=== PATIENT | female | born 1980 | race Caucasian/White ===

== ENCOUNTER 2019-07-18 17:09 | Outpatient (CLI) | payer OTHER ==
--- NOTE | 2019-07-19 09:36 | Ultrasound Report ---
Reason: ABD PAIN LLQ Procedure Date: 07/18/2019 Accession Number: [id number] / [id number] Procedure: US - Pelvic w/Transvaginal CPT Code: Final Report FULL RESULT: EXAM: PELVIC ULTRASOUND EXAM DATE: 07/18/2019 06:02 PM. CLINICAL HISTORY: Left lower quadrant abdominal pain. COMPARISON: None. TECHNIQUE: Realtime transabdominal pelvic scan performed to identify the uterus and adnexa and as an overview of other pelvic structures, followed by transvaginal scan to provide greater detail of the uterus and adnexa, with static image documentation. FINDINGS: Uterus: 7.4 x 4.4 x 5.7 cm, volume 97 cc. Anteverted position. Normal overall size and echotexture. Masses: None. Endometrium: 11 mm. Normal. Cervix: Unremarkable. Right Ovary: 4.2 x 2.4 x 2.4 cm, volume 12.5 cc. A complex cystic lesion containing nonvascular echogenic internal contents measures 1.3 x 1.8 x 2.3 cm. No evidence for torsion. Left Ovary: 2.7 x 1.4 x 1.6 cm, volume 3.3 cc. Normal echotexture and blood flow. A dominant follicle measures 1.4 cm. Free Fluid: None. Other: None. IMPRESSION: 1. Complex 2.3 cm right ovarian cystic lesion could represent a hemorrhagic cyst or potentially endometrioma. Sonographic follow-up to ensure resolution in 1-2 months suggested. 2. 1.4 cm dominant follicle noted in the left ovary. RADIA
== END 2019-07-18 17:10 | disposition home or self-care (01) ==
LOC: DI 17:09
PROVIDERS: ATTEND Physician Assistant Medical
DX: N83.9 Noninflammatory disorder of ovary, fallopian tube and broad ligament, unspecified (principal)
CPT/HCPCS: 76830; 76856

== ENCOUNTER 2019-12-06 12:43 | Emergency (ER) | payer OTHER ==
[2019-12-06] MEDS ORDERED: METOCLOPRAMIDE 10 MG/2 ML VIAL IVP STA (13:08)
--- NOTE | 2019-12-06 13:11 | ED Physician Documentation ---
PD HPI FOCAL NEURO - Stated complaint Stated Complaint: SALINAS/DIZZY/LT HAND NUMBNESS/LIPS NUMB - Chief complaint Chief Complaint: Neuro - History obtained from History obtained from: Patient - History of Present Illness Timing - onset: Today - Additional information Additional information: 39-year-old woman with history of anxiety. At around 11 AM today she suddenly developed left hand numbness that was debilitating to the point that she could not hold a phone. Subsequently developed some disequilibrium and vertigo followed by bilateral head pulsing. At some point her lips became numb. The left hand numbness is better but not completely gone. The lip numbness continues as does the headache. Review of Systems Ten Systems: 10 systems reviewed and negative Constitutional: denies: Fever, Chills Cardiac: denies: Chest pain / pressure, Palpitations Respiratory: denies: Dyspnea, Cough PD PAST MEDICAL HISTORY - Past Medical History Past Medical History: Yes Psych: Anxiety - Present Medications Home Medications: Ambulatory Orders Medication Instructions Recorded Confirmed SUMAtriptan [Imitrex] 25 mg PO BID PRN #10 tablet 12/06/19 - Allergies Allergies/Adverse Reactions: Allergies Allergy/AdvReac Type Severity Reaction Status Date / Time Sulfa (Sulfonamide Allergy Rash Verified 12/06/19 12:52 Antibiotics) - Living Situation Living Situation: reports: With spouse/s.o. - Social History Does the pt smoke?: No Does the pt have substance abuse?: No PD ED PE NORMAL - Vitals Vital signs reviewed: Yes - General General: Alert and oriented X 3, No acute distress - HEENT HEENT: PERRL, EOMI - Neck Neck: Supple, no meningeal sign, No bony TTP - Cardiac Cardiac: RRR, No murmur - Respiratory Respiratory: No respiratory distress, Clear bilaterally - Abdomen Abdomen: Normal bowel sounds, Soft, Non tender - Back Back: No CVA TTP, No spinal TTP - Derm Derm: Normal color, Warm and dry - Extremities Extremities: No edema, No calf tenderness / cord - Neuro Neuro: Alert and oriented X 3, Other (Very slight nystagmus on rightward gaze only) Eye Opening: Spontaneous Motor: Obeys Commands Verbal: Oriented GCS Score: 15 - Psych Psych: Normal mood, Normal affect NIHSS - Time Time: 13:00 - Level of Consciousness Level of consciousness: (0) Alert, Keenly responsive LOC Questions: (0) Answers both Q's correct LOC Commands: (0) Performs both correctly - Gaze Best Gaze: (0) Normal - Visual Visual: (0) No loss - Facial Palsy Facial Palsy: (0) Normal, symmetrical movement - Motor Arms (both separate) Motor Arm (right): (0) No drift Motor Arm (left): (0) No drift - Motor Legs (both separate) Motor Leg (right): (0) No drift Motor Leg (left): (0) No drift - Limb Ataxia Limb Ataxia: (0) Absent - Sensory Sensory: (0) Normal - Best Language Best Language: (0) No aphasia - Dysarthria Dysarthria: (0) Normal - Extinction and Inattention (formally neg Extinction and inattention: (0) No abnormality - Total Score/Results Total Score/Result: 0 Results - Vitals Vitals: Vital Signs - 24 hr 12/06/19 12/06/19 12/06/19 12:47 13:33 15:00 Temperature 36.6 C Heart Rate 82 69 72 Respiratory 16 15 20 Rate Blood Pressure 143/83 H 145/79 H 136/84 H O2 Saturation 99 100 100 12/06/19 12/06/19 12/06/19 17:00 19:00 19:43 Temperature 36.7 C Heart Rate 70 99 80 Respiratory 18 16 14 Rate Blood Pressure 138/72 H 144/76 H 122/76 O2 Saturation 100 99 100 Oxygen O2 Source Room air - EKG (time done) 1314 Rate: Rate (enter#) (65) Rhythm: NSR [place]: Normal Intervals: Normal CA QRS: Normal Ischemia: Normal ST segments Computer interpretation: Agree with computer - Labs Labs: Laboratory Tests 12/06/19 12/06/19 12/06/19 13:11 13:21 13:21 WBC 5.3 RBC 4.49 Hgb 13.7 Hct 41.3 MCV 92.0 MCH 30.5 MCHC 33.2 RDW 12.6 Plt Count 234 MPV 10.3 Neut # (Auto) 3.2 Lymph # (Auto) 1.7 [place] # (Auto) 0.4 Eos # (Auto) 0.0 Baso # (Auto) 0.0 Absolute Nucleated RBC 0.00 Nucleated RBC % 0.0 Sodium 136 Potassium 3.7 Chloride 99 L Carbon Dioxide 28 Anion Gap 9.0 BUN 14 Creatinine 0.7 Estimated GFR (MDRD) 93 Glucose 91 POC Whole Bld Glucose Calcium 9.5 Total Bilirubin 0.5 AST 23 ALT 12 Alkaline Phosphatase 37 L Troponin I High Sens Total Protein 7.5 Albumin 4.2 Globulin 3.3 Albumin/Globulin Ratio 1.3 Lipase 30 Urine Color LIGHT YELLOW Urine Clarity CLEAR Urine pH 6.5 Ur Specific [place] <=1.005 Urine Protein NEGATIVE Urine Glucose (UA) NEGATIVE Urine Ketones NEGATIVE Urine Occult Blood NEGATIVE Urine Nitrite NEGATIVE Urine Bilirubin NEGATIVE Urine Urobilinogen 0.2 (NORMAL) Ur Leukocyte Esterase NEGATIVE Ur Microscopic Review NOT INDICATED Urine Culture Comments NOT INDICATED Urine HCG, Qual NEGATIVE 12/06/19 12/06/19 13:21 13:24 WBC RBC Hgb Hct MCV MCH MCHC RDW Plt Count MPV Neut # (Auto) Lymph # (Auto) [place] # (Auto) Eos # (Auto) Baso # (Auto) Absolute Nucleated RBC Nucleated RBC % Sodium Potassium Chloride Carbon Dioxide Anion Gap BUN Creatinine Estimated GFR (MDRD) Glucose POC Whole Bld Glucose 88 Calcium Total Bilirubin AST ALT Alkaline Phosphatase Troponin I High Sens 2.8 Total Protein Albumin Globulin Albumin/Globulin Ratio Lipase Urine Color Urine Clarity Urine pH Ur Specific [place] Urine Protein Urine Glucose (UA) Urine Ketones Urine Occult Blood Urine Nitrite Urine Bilirubin Urine Urobilinogen Ur Leukocyte Esterase Ur Microscopic Review Urine Culture Comments Urine HCG, Qual PD MEDICAL DECISION MAKING - ED course ED course: 39-year-old woman presents with strokelike symptoms, differential also includes subarachnoid hemorrhage given the headache, migraine, and anxiety which is considered less likely because of the asymmetric nature of the symptoms. After some delay we were able to get an MRI which was read as totally normal. This rules out stroke, subarachnoid hemorrhage, multiple sclerosis and she was very relieved. Departure - Departure Disposition: 01 Home, Self Care Clinical Impression: Stroke-like symptoms Headache Qualifiers: Headache type: unspecified Headache chronicity pattern: acute headache Intractability: not intractable Qualified Code(s): R51 - Headache Condition: Good Record reviewed to determine appropriate education?: Yes Instructions: ED Headache Migraine Prescriptions: SUMAtriptan [Imitrex] 25 mg PO BID PRN #10 tablet PRN Reason: Headache Comments: As discussed, the negative MRI rules out almost all serious etiologies of your symptoms. That said if you develop new or worsening symptoms please return for reevaluation. Follow-up with your doctor, next available appointment. Discharge Date/Time: 12/06/19 19:43
[2019-12-06 13:38] LABS: BASOPHILS % (AUTO) 0.6 %; EOSINOPHILS % (AUTO) 0.7 %; HGB - HEMOGLOBIN 13.7 g/dL (12.0-16.0); LYMPHOCYTES # (AUTO) 1.7 10^3/uL (1.5-3.5); LYMPHOCYTES % (AUTO) 30.9 %; MEAN CORPUSCULAR HEMOGLOBIN 30.5 pg (27.0-31.0); MEAN CORPUSCULAR HGB CONC 33.2 g/dL (32.0-36.0); MEAN PLATELET VOLUME 10.3 fL (7.9-10.8); MONOCYTES # (AUTO) 0.4 10^3/uL (0.0-1.0); MONOCYTES % (AUTO) 7.1 %; NEUTROPHILS # (AUTO) 3.2 10^3/uL (1.5-6.6); NEUTROPHILS % (AUTO) 60.3 %; PLT - PLATELET COUNT 234 10^3/uL (130-450); RED BLOOD COUNT 4.49 10^6/uL (4.20-5.40); RED CELL DISTRIBUTION WIDTH 12.6 % (12.0-15.0); WHITE BLOOD COUNT 5.3 x10^3/uL (4.8-10.8)
[2019-12-06 13:48] LABS: BILIRUBIN,URINE NEGATIVE (NEGATIVE); GLUCOSE, URINE (UA) NEGATIVE (NEGATIVE); KETONES,URINE (UA) NEGATIVE (NEGATIVE); LEUKOCYTE ESTERASE, URINE NEGATIVE (NEGATIVE); NITRITE,URINE NEGATIVE (NEGATIVE); OCCULT BLOOD,URINE NEGATIVE (NEGATIVE); PH,URINE 6.5 PH (5.0-7.5); PROTEIN,URINE NEGATIVE (NEGATIVE); UROBILINOGEN,URINE 0.2 (NORMAL) E.U./dL (NORMAL)
[2019-12-06 13:51] LABS: CLARITY,URINE CLEAR (CLEAR); HCG UR QUAL NEGATIVE
[2019-12-06 13:57] LABS: ALBUMIN 4.2 g/dL (3.2-5.5); ALBUMIN/GLOBULIN RATIO 1.3 (1.0-2.2); BILIRUBIN,TOTAL 0.5 mg/dL (0.2-1.0); CALCIUM 9.5 mg/dL (8.5-10.3); CREATININE 0.7 mg/dL (0.4-1.0); TOTAL PROTEIN 7.5 g/dL (6.7-8.2)
--- NOTE | 2019-12-06 19:26 | MRI Report ---
PROCEDURE: Brain W/O INDICATIONS: stroke like sx TECHNIQUE: Noncontrast axial T1 spin echo, axial T2 fast spin echo, sagittal and axial FLAIR, coronal T2 fast sp in echo, axial gradient echo, axial diffusion and ADC through the brain. COMPARISON: None. FINDINGS: Image quality: Excellent. CSF Spaces: Basal cisterns are patent. No extra-axial fluid collections. Ventricles are normal in size and shape. Brain: No intracranial masses or hemorrhage. [place]/white matter interface is normal. Brainstem appe ars normal. Diffusion-weighted images demonstrate no acute ischemic insult. No areas of encephalomal acia. No abnormal GRE artifact in the brain parenchyma. No abnormal intracranial signal. Normal intra vascular flow voids are present. Skull and face: Calvarium has normal marrow signal. Orbits appear normal. Sinuses: Sinuses and mastoids are clear. IMPRESSION: 1. No intracranial disease process. 2. No areas of acute or chronic infarction. 3. No intracranial hemorrhage. 4. No abnormal intracranial mass or mass effect. Reviewed by: Alka Mackay MD, PhD on 12/06/2019 7:25 PM PDT Approved by: Alka Mackay MD, PhD on 12/06/2019 7:25 PM PDT Station ID: [id number]
[2019-12-06] MEDS ORDERED: SUMAtriptan 25 MG TABLET PO STA (19:30)
[2019-12-06 19:44] VITALS: BP 122/76
== END 2019-12-06 19:43 | disposition home or self-care (01) ==
LOC: ED 12:43
DX: R51 Headache (principal); R42 Dizziness and giddiness; R20.0 Anesthesia of skin; F41.9 Anxiety disorder, unspecified
CPT/HCPCS: 36415; 70551; 80053; 81003; 81025; 83690; 84484; 85025; 93005; 96374; 99284; 99285; A9270; J2765; 81001; 87086

== ENCOUNTER 2021-03-19 18:45 | Outpatient (CLI) | payer OTHER ==
--- NOTE | 2021-03-20 12:44 | Ultrasound Report ---
PROCEDURE: Pelvic w/Transvaginal INDICATIONS: OVARIAN CYST TECHNIQUE: Real-time scanning was performed of the pelvic organs, with image documentation. Additional endovagi nal scanning was necessary due to incomplete visualization of the adnexal and endometrial structures by transabdominal scanning. COMPARISON: Pelvic ultrasound 07/18/2019 FINDINGS: No pathologic free abdominal or pelvic fluid. Uterus: Uterus is normal in size at 7.8 x 4.5 x 5.2 cm. The endometrium measures 9.7 mm in combined thickness. Ovaries: Right ovary measures 4.1 x 2 7 x 3.1 cm, volume 17.7 cc., Focus of heterogeneous echogenici ty is present measuring 2.3 x 1.8 x 1.7 cm compared to 2.3 x 1.8 x 1.3 cm. IMPRESSION: Complex cyst in the right ovary minimally more prominent as above. Reviewed by: Sondra Ibarra MD on 03/20/2021 12:43 PM PDT Approved by: Sondra Ibarra MD on 03/20/2021 12:43 PM PDT Station ID: [id number]
== END 2021-03-19 18:46 | disposition home or self-care (01) ==
LOC: DI 18:45
PROVIDERS: ATTEND Physician Assistant Medical
DX: N83.291 Other ovarian cyst, right side (principal)

== ENCOUNTER 2022-05-28 08:00 | Outpatient (CLI) | payer OTHER ==
[2022-05-28 17:56] LABS: ALBUMIN 3.3 g/dL (3.2-5.5); ALBUMIN/GLOBULIN RATIO 0.9 (1.0-2.2); BILIRUBIN,TOTAL 0.3 mg/dL (0.2-1.0); CREATININE 0.6 mg/dL (0.4-1.0); CRP - C-REACTIVE PROTEIN 11.7 mg/dL (0-1.0); POTASSIUM 3.6 mmol/L (3.5-5.0)
[2022-05-28 17:59] LABS: BASOPHILS % (AUTO) 0.3 %; EOSINOPHILS # (AUTO) 0.1 10^3/uL (0.0-0.7); EOSINOPHILS % (AUTO) 0.9 %; HGB - HEMOGLOBIN 11.3 g/dL (12.0-16.0); MEAN CORPUSCULAR HEMOGLOBIN 30.4 pg (27.0-31.0); MEAN CORPUSCULAR HGB CONC 32.3 g/dL (32.0-36.0); MEAN CORPUSCULAR VOLUME 94.1 fL (81.0-99.0); MEAN PLATELET VOLUME 10.7 fL (7.9-10.8); MONOCYTES # (AUTO) 0.6 10^3/uL (0.0-1.0); MONOCYTES % (AUTO) 8.7 %; NEUTROPHILS # (AUTO) 4.7 10^3/uL (1.5-6.6); NEUTROPHILS % (AUTO) 74.8 %; PLT - PLATELET COUNT 310 10^3/uL (130-450); RED BLOOD COUNT 3.72 10^6/uL (4.20-5.40); RED CELL DISTRIBUTION WIDTH 12.2 % (12.0-15.0); WHITE BLOOD COUNT 6.3 x10^3/uL (4.8-10.8)
== END 2022-05-28 23:59 | disposition home or self-care (01) ==
LOC: LAB.N 08:00
PROVIDERS: ATTEND Registered Nurse
DX: R05.1 Acute cough (principal); R10.9 Unspecified abdominal pain; R82.998 Other abnormal findings in urine; R10.31 Right lower quadrant pain
CPT/HCPCS: 36415; 80053; 85025; 86140

== ENCOUNTER 2023-01-04 11:12 | Outpatient (CLI) | payer OTHER ==
--- NOTE | 2023-01-05 09:46 | Mammography Report ---
BILATERAL DIGITAL SCREENING MAMMOGRAM 3D/2D: 01/04/2023 CLINICAL: Baseline exam. Routine screening. No prior exams were available for comparison. Both breasts are heterogeneously dense, which may obscure small masses (category c / 51-75% glandular tissue). No significant masses, calcifications, or other findings are seen in either breast. IMPRESSION: NEGATIVE There is no mammographic evidence of malignancy. A 1 year screening mammogram is recommended. Based on the Tyrer Cuzick model (a risk assessment model) the patients lifetime risk is 13.3% and he r 10 year risk is 2.0%. According to the ACR, ACS, and NCCN guidelines, an annual breast MRI exam ministerio ng with mammogram is recommended if the patients lifetime risk is 20% or greater. This exam was interpreted at Station ID: [id number]. NOTE: For mammograms, a report in lay terms will be sent to the patient. Approximately 15% of breast malignancies will not be visualized mammographically. In the management of a palpable breast mass, a negative mammogram must not discourage biopsy of a clinically suspicious lesion. Electronically Signed By: Tyler maharaj/samuel:01/04/2023 15:26:48 letter sent: No_Letter ACR BI-RADS Category 1: Negative 3341F PARENCHYMAL PATTERN: (D) - The breast(s) demonstrate(s) heterogeneously dense fibroglandular maria eugenia ordoñez. BI-RADS CATEGORY: (1) - 1 Mammogram [id number] 1 year screening LATERALITY: (B)
== END 2023-01-04 11:13 | disposition home or self-care (01) ==
LOC: DI.N 11:12
DX: Z12.31 Encounter for screening mammogram for malignant neoplasm of breast (principal)

== ENCOUNTER 2023-02-12 15:28 | Outpatient (CLI) | payer OTHER ==
[2023-02-12 18:03] LABS: EOSINOPHILS # (AUTO) 0.1 10^3/uL (0.0-0.7); HCT - HEMATOCRIT 42.3 % (37.0-47.0); HGB - HEMOGLOBIN 13.6 g/dL (12.0-16.0); LYMPHOCYTES # (AUTO) 1.3 10^3/uL (1.5-3.5); LYMPHOCYTES % (AUTO) 33.5 %; MEAN CORPUSCULAR HEMOGLOBIN 30.6 pg (27.0-31.0); MEAN CORPUSCULAR HGB CONC 32.2 g/dL (32.0-36.0); MEAN CORPUSCULAR VOLUME 95.1 fL (81.0-99.0); MEAN PLATELET VOLUME 10.6 fL (7.9-10.8); MONOCYTES # (AUTO) 0.4 10^3/uL (0.0-1.0); MONOCYTES % (AUTO) 8.8 %; NEUTROPHILS # (AUTO) 2.2 10^3/uL (1.5-6.6); NEUTROPHILS % (AUTO) 54.4 %; PLT - PLATELET COUNT 268 10^3/uL (130-450); RED BLOOD COUNT 4.45 10^6/uL (4.20-5.40); RED CELL DISTRIBUTION WIDTH 12.6 % (12.0-15.0)
[2023-02-12 18:17] LABS: ALBUMIN 4.5 g/dL (3.2-5.5); ALBUMIN/GLOBULIN RATIO 1.6 (1.0-2.2); ALKALINE PHOSPHATASE 40 IU/L (42-121); ALT ALANINE AMINOTRANSFERASE 9 IU/L (10-60); AST ASPARTATE AMINOTRANSFERASE 18 IU/L (10-42); BILIRUBIN,TOTAL 0.3 mg/dL (0.2-1.0); BUN - BLOOD UREA NITROGEN 10 mg/dL (6-20); CALCIUM 9.6 mg/dL (8.5-10.3); CARBON DIOXIDE - CO2 30 mmol/L (21-32); CHLORIDE 102 mmol/L (101-111); CHOL/HDL RATIO 3.7 (<4.4); CHOLESTEROL 220 mg/dL; CREATININE 0.8 mg/dL (0.6-1.3); GFR - MDRD 79 (>89); GLUCOSE 110 mg/dL (74-104); HDL CHOLESTEROL 59 mg/dL; LDL CHOLESTEROL,CALCULATED 131 mg/dL; LDL/HDL RATIO 2.2 (<4.4); POTASSIUM 4.1 mmol/L (3.5-4.5); SODIUM 137 mmol/L (135-145); TOTAL PROTEIN 7.4 g/dL (6.4-8.9); TRIGLYCERIDES 149 mg/dL (48-352); VLDL CHOLESTEROL 30 mg/dL
[2023-02-12 18:19] LABS: THYROID STIMULATING HORMONE 1.32 uIU/mL (0.34-5.60)
== END 2023-02-12 15:29 | disposition home or self-care (01) ==
LOC: LAB.N 15:28
PROVIDERS: ATTEND Nurse Practitioner
DX: F33.1 Major depressive disorder, recurrent, moderate (principal)
CPT/HCPCS: 36415; 80053; 80061; 82306; 83721; 84439; 84443; 84481; 85025

== ENCOUNTER 2023-11-17 09:00 | Outpatient (CLI) | payer OTHER | END 2023-11-17 09:15 | disposition home or self-care (01) | LOC: LAB.N 09:00 | PROVIDERS: ATTEND Physician Assistant Medical | DX: J02.9 Acute pharyngitis, unspecified (principal) | CPT/HCPCS: 87070 ==